=== PATIENT | male | born 1970 | race Caucasian/White ===

== ENCOUNTER 2017-11-04 08:24 | Inpatient (IN) | payer OTHER ==
[2017-11-04 09:41] VITALS: BMI 31.2
--- NOTE | 2017-11-04 12:33 | HP ---
COWS - Scale Resting Pulse: 0= [place] 80 or Below Sweatin=Flushed/Facial Moisture Restless Observation: 3= Extraneous Movement Pupil Size: 2= Moderately Dilated Bone or Joint Aches: 2= Severe Diffuse Aches Runny Nose/ Eye Tearin= Runny Nose/Eyes GI Upset > 30mins: 3= Vomiting/Diarrhea Tremor Observation: 2= Slight Tremor Visible Yawning Observation: 2= >3x During Session Anxiety or Irritability: 2=Irritable/Anxious Goose Flesh Skin: 0=Smooth Skin COWS Score: 20 CIWA Score - CIWA Score Nausea/Vomitin Muscle Tremors: 3 Anxiety: 3 Agitation: 3 Paroxysmal Sweats: 1-Minimal Palms Moist Orientation: 0-Oriented Tacttile Disturbances: 2-Mild Itch/Numbness/Burn Auditory Disturbances: 2-Mild Harshness/Frighten Visual Disturbances: 1-Very Mild Sensitivity Headache: 2-Mild CIWA-Ar Total Score: 20 Admission ROS BHS - HPI Chief Complaint: i need help to stop using heroin,alcohol and cocaine Allergies/Adverse Reactions: Allergies Allergy/AdvReac Type Severity Reaction Status Date / Time No Known Allergies Allergy Verified 11/04/17 10:38 History of Present Illness: this 47 years old male with heroin,alcohol,cocaine dependence,seeking detox, withdrawal symptom,last treatment [facility] 2003 sprain of right ankle 1 week ago seen at [facility] with cane nicotine dependence longest period of sobriety 6 years Exam Limitations: No Limitations - Ebola screening Have you traveled outside of the country in the last 21 days: No Have you had contact with anyone from an Ebola affected area: No Have you been sick,other than usual withdrawal symptoms: No - Review of Systems Constitutional: Chills, Loss of Appetite, Malaise, Night Sweats, Changes in sleep, Weakness, Unintentional Wgt. Loss EENT: reports: Tearing, Nose Congestion Respiratory: reports: No Symptoms reported Cardiac: reports: No Symptoms Reported GI: reports: Diarrhea, Nausea, Vomiting, Abdominal cramping : reports: No Symptoms Reported Musculoskeletal: reports: Back Pain, Joint Pain, Muscle Pain, Joint Stiffness, Other (sprain of right ankle 1 week ago ambulation with cane) Integumentary: reports: Dryness Endocrine: reports: No Symptoms Reported Hematology: reports: No Symptoms Reported Psychiatric: reports: No Sypmtoms Reported, Judgement Intact, Mood/Affect Appropiate Other Systems: Reviewed and Negative Patient History - Patient Medical History Hx Anemia: No Hx Asthma: No Hx Chronic Obstructive Pulmonary Disease (COPD): No Hx Cancer: No Hx Cardiac Disorders: No Hx Congestive Heart Failure: No Hx Hypertension: No Hx Hypercholesterolemia: No Hx Pacemaker: No HX Cerebrovascular Accident: No Hx Seizures: No Hx Dementia: No Hx Diabetes: No Hx Gastrointestinal Disorders: No Hx Liver Disease: No Hx Genitourinary Disorders: No Hx Sexually Transmitted Disorders: No Hx Renal Disease (ESRD): No Hx Thyroid Disease: No Hx Human Immunodeficiency Virus (HIV): No (last 09/07 negative) Hx Hepatitis C: No Hx Depression: No Hx Suicide Attempt: No Hx Bipolar Disorder: No Hx Schizophrenia: No Other Medical History: no suicidal,no homicidal - Patient Surgical History Past Surgical History: No Hx Neurologic Surgery: No Hx Cataract Extraction: No Hx Cardiac Surgery: No Hx Lung Surgery: No Hx Breast Surgery: No Hx Breast Biopsy: No Hx Abdominal Surgery: No Hx Appendectomy: No Hx Cholecystectomy: No Hx Genitourinary Surgery: No Hx Section: No Hx Orthopedic Surgery: No Anesthesia Reaction: No - PPD History Previous Implant?: Yes Documented Results: Positive w/o proof PPD to be Administered?: No - Smoking Cessation Smoking history: Current every day smoker Have you smoked in the past 12 months: Yes Aproximately how many cigarettes per day: 20 Hx Chewing Tobacco Use: No Initiated information on smoking cessation: Yes 'Breaking Loose' booklet given: 11/04/17 - Substance & Tx. History Hx Alcohol Use: Yes Hx Substance Use: Yes Substance Use Type: Alcohol, Cocaine, Heroin Hx Substance Use Treatment: Yes ([facility] in 2003) - Substances Abused Heroin Route: Inhalation Frequency: Daily Amount used: 5-10 bags Age of first use: 30 Date of Last Use: 11/03/17 Cocaine Route: Inhalation Frequency: 1-3 times last 30 days Amount used: $20-40 Age of first use: 16 Date of Last Use: 11/03/17 Alcohol-beer Route: Oral Frequency: Daily Amount used: 2-6 pks. Age of first use: 13 Date of Last Use: 11/03/17 Family Disease History - Family Disease History Family History: Denies Admission Physical Exam BHS - Vital Signs Vital Signs: Vital Signs - 24 hr 11/04/17 09:37 Temperature 98.5 F Pulse Rate 65 Respiratory 18 Rate Blood Pressure 146/94 - Physical General Appearance: Yes: Moderate Distress, Tremorous, Irritable, Sweating, Anxious HEENTM: Yes: Normal ENT Inspection, SIMON, Pharynx Normal Respiratory: Yes: Within Normal Limits, Lungs Clear, Normal Breath Sounds Neck: Yes: Within Normal Limits, Supple, Trachea in good position Breast: Yes: Within Normal Limits Cardiology: Yes: Within Normal Limits, Regular Rhythm, Regular Rate, S1, S2 Abdominal: Yes: Within Normal Limits, Normal Bowel Sounds, Non Tender, Soft Genitourinary: Yes: Within Normal Limits Back: Yes: Muscle Spasm Musculoskeletal: Yes: full range of Motion (swelling right ankle ambuation with cane), Back pain, Muscle Pain Extremities: Yes: Tremors (swelling of right ankle) 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: Yes: exotic dancer II-XII NML intact, Fully Oriented, Alert, Motor Strength 5/5 Integumentary: Yes: Dry Lymphatic: Yes: Within Normal Limits - Diagnostic (1) Opioid dependence with withdrawal Current Visit: Yes Status: Acute (2) Cocaine dependence Current Visit: Yes Status: Acute (3) Alcohol dependence with uncomplicated withdrawal Current Visit: Yes Status: Acute (4) Sprain and strain of ankle Current Visit: Yes Status: Acute (5) Use of cane as ambulatory aid Current Visit: Yes Status: Acute (6) Positive PPD Current Visit: Yes Status: Acute Cleared for Admission [facility] - Detox or Rehab [facility] Level of Care: Medically Managed Detox Regimen/Protocol: Methadone/Librium [facility] Breath Alcohol Content Breath Alcohol Content: 0 Urine Drug Screen - Results Drug Screen Negative: No Urine Drug Screen Results: AJ-Cocaine, OPI-Opiates
[2017-11-04] MEDS ORDERED: guaiFENesin/D-METHORPHAN HB 10 ML UNIT-DOSE CUPS PO PRN (12:44)
[2017-11-04] MEDS ORDERED: MAGNESIUM HYDROX 2400MG/30ML ORAL SUSPENSION 30 ML CUP PO PRN (12:44)
[2017-11-04] MEDS ORDERED: MENTHOL/PHENOL 1 EACH UD MM PRN (12:44)
[2017-11-04] MEDS ORDERED: LOPERAMIDE HCL 2 MG CAPSULE PO PRN (12:44)
[2017-11-04] MEDS ORDERED: P-EPHED 60MG/TRIPROLIDI 2.5MG TABLET PO PRN (12:44)
[2017-11-04] MEDS ORDERED: MAGNESIUM CITRATE 300 ML BOTTLE PO PRN (12:44)
[2017-11-04] MEDS ORDERED: MAG HYDROX/AL HYDROX/SIMETH 30 ML UNIT-DOSE CUP PO PRN (12:44)
[2017-11-04] MEDS ORDERED: IBUPROFEN 400 MG TABLET (FP) PO PRN (12:44)
[2017-11-04] MEDS ORDERED: chlordiazePOXIDE HCL 25 MG CAPSULE PO ONE (13:30)
[2017-11-04] MEDS ORDERED: METHADONE HCL 10 MG TABLET (FOR DETOX USE ONLY) PO ONE ×2 (13:30→23:00)
--- NOTE | 2017-11-04 17:09 | EKG ---
Test Reason : Blood Pressure : / mmHG Vent. Rate : 062 BPM Atrial Rate : 062 BPM P-R Int : 168 ms QRS Dur : 096 ms QT Int : 440 ms P-R-T Axes : 043 020 030 degrees QTc Int : 446 ms NORMAL SINUS RHYTHM NORMAL ECG NO PREVIOUS ECGS AVAILABLE Confirmed by MD AMANDA, RAY ([id number]) on 11/04/2017 5:08:53 PM Referred By: Confirmed By:RAY PATEL MD
[2017-11-04] MEDS: chlordiazePOXIDE HCL 25 MG CAPSULE PO SCH ×2 (17:47→22:07)
[2017-11-04] MEDS ORDERED: MELATONIN 5 MG TABLETS PO PRN (22:00)
[2017-11-04] MEDS: THIAMINE HCL 100 MG TABLET (FP) PO SCH (22:08)
[2017-11-04 23:26] LABS: URINE APPEARANCE TURBID; URINE BILIRUBIN NEGATIVE (<2.0 mg/dL); URINE COLOR YELLOW; URINE GLUCOSE (UA) NEGATIVE (NEGATIVE); URINE KETONE NEGATIVE (NEGATIVE); URINE LEUK ESTERASE NEGATIVE (NEGATIVE); URINE NITRITE NEGATIVE (NEGATIVE); URINE PROTEIN NEGATIVE (NEGATIVE); URINE UROBILINOGEN NEGATIVE mg/dL (0.2-1.0)
[2017-11-05] MEDS: chlordiazePOXIDE HCL 25 MG CAPSULE PO SCH ×4 (06:23→22:15)
[2017-11-05] MEDS ORDERED: METHADONE HCL 10 MG TABLET (FOR DETOX USE ONLY) PO SCH (10:00)
[2017-11-05 10:20] LABS: HEMATOCRIT 38.3 % (35.4-49); HEMOGLOBIN 13.2 GM/dL (11.7-16.9); MCH 32.1 pg (25.7-33.7); MCHC 34.3 g/dl (32.0-35.9); MEAN CELL VOLUME 93.5 fl (80-96); PLATELET COUNT 196 K/MM3 (134-434); RBC 4.09 M/mm3 (4.00-5.60); RDW 13.6 % (11.9-15.9); WHITE BLOOD COUNT 7.1 K/mm3 (4.0-10.0)
[2017-11-05 10:24] LABS: CHLORIDE 102 mmol/L (98-107); POTASSIUM 4.4 mmol/L (3.5-5.1); SODIUM 138 mmol/L (136-145)
[2017-11-05] MEDS: PRENATAL VITAMINS W/ FOLIC ACID TABLET (FP) PO SCH (10:31)
[2017-11-05 11:55] LABS: ALK PHOS 71 U/L (45-117); BLOOD UREA NITROGEN 15 mg/dL (7-18); CALCIUM 8.2 mg/dL (8.5-10.1); CREATININE 0.8 mg/dL (0.7-1.3); GLUCOSE,RANDOM 92 mg/dL (74-106); SGOT/AST 20 U/L (15-37); SGPT/ALT 21 U/L (12-78); TOT PROT 7.2 g/dl (6.4-8.2)
[2017-11-05 12:09] LABS: ANION GAP 8 (8-16); CO2 28 mmol/L (21-32)
--- NOTE | 2017-11-05 13:25 | PN ---
[facility] CIWA - CIWA Score Nausea/Vomitin-No Nausea/No Vomiting Muscle Tremors: 4-Moderate,w/Arms Extend Anxiety: 3 Agitation: 3 Paroxysmal Sweats: 3 Orientation: 0-Oriented Tacttile Disturbances: 3-Moderate Itch/Numb/Burn Auditory Disturbances: 2-Mild Harshness/Frighten Visual Disturbances: 0-None Headache: 0-None Present CIWA-Ar Total Score: 18 BHS COWS - Scale Resting Pulse: 0= [place] 80 or Below Sweatin= Chills/Flushing Restless Observation: 1= Difficult to Sit Still Pupil Size: 0= Normal to Room Light Bone or Joint Aches: 2= Severe Diffuse Aches Runny Nose/ Eye Tearin= Runny Nose/Eyes GI Upset > 30mins: 2= Nausea/Diarrhea Tremor Observation of Outstretched Hands: 2= Slight Tremor Visible Yawning Observation: 1= 1-2x During Session Anxiety or Irritability: 2=Irritable/Anxious Goose Flesh Skin: 0=Smooth Skin COWS Score: 13 S Progress Note (SOAP) Subjective: Tremors, Fatigue, Diarrhea, Body Aches, Sweating. Objective: PATIENT A & O X 3. NO ACUTE DISTRESS. 11/05/17 13:23 Vital Signs Temperature 96.5 F L 11/05/17 09:34 Pulse Rate 70 11/05/17 09:34 Respiratory Rate 18 11/05/17 09:34 Blood Pressure 151/94 11/05/17 09:34 O2 Sat by Pulse Oximetry (%) Laboratory Tests 11/04/17 11/05/17 11/05/17 23:04 06:00 06:00 WBC 7.1 RBC 4.09 Hgb 13.2 Hct 38.3 MCV 93.5 MCH 32.1 MCHC 34.3 RDW 13.6 Plt Count 196 MPV 9.0 Sodium 138 Potassium 4.4 Chloride 102 Carbon Dioxide 28 Anion Gap 8 BUN 15 Creatinine 0.8 Creat Clearance w eGFR > 60 Random Glucose 92 Calcium 8.2 L Total Bilirubin 1.0 AST 20 ALT 21 Alkaline Phosphatase 71 Total Protein 7.2 Albumin 4.0 Urine Color Yellow Urine Appearance Turbid Urine pH 5.0 Ur Specific [place] 1.027 Urine Protein Negative Urine Glucose (UA) Negative Urine Ketones Negative Urine Blood Negative Urine Nitrite Negative Urine Bilirubin Negative Urine Urobilinogen Negative Ur Leukocyte Esterase Negative RPR Titer 11/05/17 06:00 WBC RBC Hgb Hct MCV MCH MCHC RDW Plt Count MPV Sodium Potassium Chloride Carbon Dioxide Anion Gap BUN Creatinine Creat Clearance w eGFR Random Glucose Calcium Total Bilirubin AST ALT Alkaline Phosphatase Total Protein Albumin Urine Color Urine Appearance Urine pH Ur Specific [place] Urine Protein Urine Glucose (UA) Urine Ketones Urine Blood Urine Nitrite Urine Bilirubin Urine Urobilinogen Ur Leukocyte Esterase RPR Titer Nonreactive LABS NOTED. Assessment: 11/05/17 13:24 WITHDRAWAL SYMPTOMS. Plan: CONTINUE DETOX. CONTINUE TO MONITOR BP.
[2017-11-05] MEDS: chlordiazePOXIDE HCL 25 MG CAPSULE PO PRN (15:45)
[2017-11-05] MEDS: THIAMINE HCL 100 MG TABLET (FP) PO SCH (22:15)
[2017-11-06] MEDS: chlordiazePOXIDE HCL 25 MG CAPSULE PO SCH ×2 (07:11→10:01)
[2017-11-06] MEDS: METHADONE HCL 5 MG TABLET (FOR DETOX USE ONLY) PO SCH (09:58)
[2017-11-06] MEDS: PRENATAL VITAMINS W/ FOLIC ACID TABLET (FP) PO SCH (09:58)
--- NOTE | 2017-11-06 11:45 | PN ---
[facility] CIWA - CIWA Score Nausea/Vomitin-No Nausea/No Vomiting Muscle Tremors: 3 Anxiety: 3 Agitation: 1-Slight > Activity Paroxysmal Sweats: 3 Orientation: 0-Oriented Tacttile Disturbances: 2-Mild Itch/Numbness/Burn Auditory Disturbances: 0-None Visual Disturbances: 3-Moderate Sensitivity Headache: 0-None Present CIWA-Ar Total Score: 15 BHS COWS - Scale Resting Pulse: 0= [place] 80 or Below Sweatin= Chills/Flushing Restless Observation: 1= Difficult to Sit Still Pupil Size: 0= Normal to Room Light Bone or Joint Aches: 0= None Runny Nose/ Eye Tearin= Nasal Congestion GI Upset > 30mins: 0= None Tremor Observation of Outstretched Hands: 2= Slight Tremor Visible Yawning Observation: 2= >3x During Session Anxiety or Irritability: 2=Irritable/Anxious Goose Flesh Skin: 3=[place] COWS Score: 12 S Progress Note (SOAP) Subjective: Fatigue, Tremors, Sweating, Anxious. Objective: PATIENT A & O X 3. NO ACUTE DISTRESS. PATIENT DENIES CHEST PAIN. 11/06/17 11:43 Vital Signs Temperature 97.0 F L 11/06/17 09:33 Pulse Rate 66 11/06/17 09:33 Respiratory Rate 18 11/06/17 09:33 Blood Pressure 150/94 11/06/17 09:33 O2 Sat by Pulse Oximetry (%) Laboratory Tests 11/04/17 11/05/17 11/05/17 23:04 06:00 06:00 WBC 7.1 RBC 4.09 Hgb 13.2 Hct 38.3 MCV 93.5 MCH 32.1 MCHC 34.3 RDW 13.6 Plt Count 196 MPV 9.0 Sodium 138 Potassium 4.4 Chloride 102 Carbon Dioxide 28 Anion Gap 8 BUN 15 Creatinine 0.8 Creat Clearance w eGFR > 60 Random Glucose 92 Calcium 8.2 L Total Bilirubin 1.0 AST 20 ALT 21 Alkaline Phosphatase 71 Total Protein 7.2 Albumin 4.0 Urine Color Yellow Urine Appearance Turbid Urine pH 5.0 Ur Specific [place] 1.027 Urine Protein Negative Urine Glucose (UA) Negative Urine Ketones Negative Urine Blood Negative Urine Nitrite Negative Urine Bilirubin Negative Urine Urobilinogen Negative Ur Leukocyte Esterase Negative RPR Titer 11/05/17 06:00 WBC RBC Hgb Hct MCV MCH MCHC RDW Plt Count MPV Sodium Potassium Chloride Carbon Dioxide Anion Gap BUN Creatinine Creat Clearance w eGFR Random Glucose Calcium Total Bilirubin AST ALT Alkaline Phosphatase Total Protein Albumin Urine Color Urine Appearance Urine pH Ur Specific [place] Urine Protein Urine Glucose (UA) Urine Ketones Urine Blood Urine Nitrite Urine Bilirubin Urine Urobilinogen Ur Leukocyte Esterase RPR Titer Nonreactive LABS NOTED. 11/06/17 11:44 Assessment: 11/06/17 11:44 WITHDRAWAL SYMPTOMS. Plan: CONTINUE DETOX. CONTINUE TO MONITOR BP.
[2017-11-06] MEDS ORDERED: NICOTINE POLACRILEX 4 MG GUM BUC PRN (12:48)
[2017-11-06] MEDS: chlordiazePOXIDE HCL 25 MG CAPSULE PO PRN (13:21)
[2017-11-06] MEDS: chlordiazePOXIDE 5 MG CAPSULE PO SCH ×2 (17:04→22:16)
[2017-11-06] MEDS: THIAMINE HCL 100 MG TABLET (FP) PO SCH (22:16)
[2017-11-07] MEDS: chlordiazePOXIDE 5 MG CAPSULE PO SCH ×2 (05:48→10:45)
[2017-11-07] MEDS: PRENATAL VITAMINS W/ FOLIC ACID TABLET (FP) PO SCH (10:45)
[2017-11-07] MEDS: METHADONE HCL 5 MG TABLET (FOR DETOX USE ONLY) PO SCH (10:45)
[2017-11-07] MEDS: ACETAMINOPHEN 325 MG TABLET (FP) PO PRN ×2 (10:46→17:59)
--- NOTE | 2017-11-07 11:37 | PN ---
BHS Progress Note (SOAP) Subjective: Body Aches, Tremors, Fatigue. Objective: PATIENT A & O X 3. NO ACUTE DISTRESS. 11/07/17 11:35 Vital Signs Temperature 96.6 F L 11/07/17 09:34 Pulse Rate 64 11/07/17 09:34 Respiratory Rate 18 11/07/17 09:34 Blood Pressure 129/81 11/07/17 09:34 O2 Sat by Pulse Oximetry (%) Laboratory Tests 11/04/17 11/05/17 11/05/17 23:04 06:00 06:00 WBC 7.1 RBC 4.09 Hgb 13.2 Hct 38.3 MCV 93.5 MCH 32.1 MCHC 34.3 RDW 13.6 Plt Count 196 MPV 9.0 Sodium 138 Potassium 4.4 Chloride 102 Carbon Dioxide 28 Anion Gap 8 BUN 15 Creatinine 0.8 Creat Clearance w eGFR > 60 Random Glucose 92 Calcium 8.2 L Total Bilirubin 1.0 AST 20 ALT 21 Alkaline Phosphatase 71 Total Protein 7.2 Albumin 4.0 Urine Color Yellow Urine Appearance Turbid Urine pH 5.0 Ur Specific [place] 1.027 Urine Protein Negative Urine Glucose (UA) Negative Urine Ketones Negative Urine Blood Negative Urine Nitrite Negative Urine Bilirubin Negative Urine Urobilinogen Negative Ur Leukocyte Esterase Negative RPR Titer 11/05/17 06:00 WBC RBC Hgb Hct MCV MCH MCHC RDW Plt Count MPV Sodium Potassium Chloride Carbon Dioxide Anion Gap BUN Creatinine Creat Clearance w eGFR Random Glucose Calcium Total Bilirubin AST ALT Alkaline Phosphatase Total Protein Albumin Urine Color Urine Appearance Urine pH Ur Specific [place] Urine Protein Urine Glucose (UA) Urine Ketones Urine Blood Urine Nitrite Urine Bilirubin Urine Urobilinogen Ur Leukocyte Esterase RPR Titer Nonreactive LABS NOTED. Assessment: 11/07/17 11:35 WITHDRAWAL SYMPTOMS. Plan: CONTINUE DETOX. ENCOURAGE AMBULATION. INCREASE DAILY PO FLUID INTAKE.
[2017-11-07] MEDS: chlordiazePOXIDE HCL 10 MG CAPSULE PO SCH ×2 (17:58→22:15)
[2017-11-07] MEDS: hydrOXYzine PAMOATE 50 MG CAPSULE (FP) PO PRN (19:47)
[2017-11-07] MEDS: THIAMINE HCL 100 MG TABLET (FP) PO SCH (22:15)
[2017-11-08] MEDS: chlordiazePOXIDE HCL 10 MG CAPSULE PO SCH ×2 (06:35→10:45)
[2017-11-08] MEDS ORDERED: METHADONE HCL 10 MG TABLET (FOR DETOX USE ONLY) PO SCH (10:00)
[2017-11-08] MEDS: PRENATAL VITAMINS W/ FOLIC ACID TABLET (FP) PO SCH (10:45)
[2017-11-08] MEDS: ACETAMINOPHEN 325 MG TABLET (FP) PO PRN (10:47)
--- NOTE | 2017-11-08 18:37 | PN ---
BHS Progress Note (SOAP) Subjective: Sweating, Anxious. Objective: PATIENT A & O X 3, OBSERVED AMBULATING ON UNIT. NO ACUTE DISTRESS. 11/08/17 18:35 Vital Signs Temperature 97.2 F L 11/08/17 18:09 Pulse Rate 68 11/08/17 18:09 Respiratory Rate 18 11/08/17 18:09 Blood Pressure 132/89 11/08/17 18:09 O2 Sat by Pulse Oximetry (%) Laboratory Tests 11/04/17 11/05/17 11/05/17 23:04 06:00 06:00 WBC 7.1 RBC 4.09 Hgb 13.2 Hct 38.3 MCV 93.5 MCH 32.1 MCHC 34.3 RDW 13.6 Plt Count 196 MPV 9.0 Sodium 138 Potassium 4.4 Chloride 102 Carbon Dioxide 28 Anion Gap 8 BUN 15 Creatinine 0.8 Creat Clearance w eGFR > 60 Random Glucose 92 Calcium 8.2 L Total Bilirubin 1.0 AST 20 ALT 21 Alkaline Phosphatase 71 Total Protein 7.2 Albumin 4.0 Urine Color Yellow Urine Appearance Turbid Urine pH 5.0 Ur Specific [place] 1.027 Urine Protein Negative Urine Glucose (UA) Negative Urine Ketones Negative Urine Blood Negative Urine Nitrite Negative Urine Bilirubin Negative Urine Urobilinogen Negative Ur Leukocyte Esterase Negative RPR Titer 11/05/17 06:00 WBC RBC Hgb Hct MCV MCH MCHC RDW Plt Count MPV Sodium Potassium Chloride Carbon Dioxide Anion Gap BUN Creatinine Creat Clearance w eGFR Random Glucose Calcium Total Bilirubin AST ALT Alkaline Phosphatase Total Protein Albumin Urine Color Urine Appearance Urine pH Ur Specific [place] Urine Protein Urine Glucose (UA) Urine Ketones Urine Blood Urine Nitrite Urine Bilirubin Urine Urobilinogen Ur Leukocyte Esterase RPR Titer Nonreactive LABS NOTED. Assessment: 11/08/17 18:36 WITHDRAWAL SYMPTOMS. Plan: CONTINUE DETOX. INCREASE DAILY PO FLUID INTAKE. ENCOURAGE AMBULATION. PATIENT SCHEDULED FOR D/C TOMORROW.
[2017-11-08] MEDS: hydrOXYzine PAMOATE 50 MG CAPSULE (FP) PO PRN (22:13)
[2017-11-08] MEDS: THIAMINE HCL 100 MG TABLET (FP) PO SCH (22:13)
[2017-11-09] MEDS ORDERED: METHADONE HCL 5 MG TABLET (FOR DETOX USE ONLY) PO SCH (06:00)
[2017-11-09 06:40] VITALS: BP 119/82; PULSE 61; TEMP 96.1
--- NOTE | 2017-11-09 11:26 | DS ---
[facility] Detox Discharge Summary Admission Date: 11/04/17 Discharge Date: 11/09/17 - History Present History: Alcohol Dependence, Cocaine Dependence, Opioid Dependence Pertinent Past History: PPD Positive - Physical Exam Results Vital Signs: Vital Signs Temperature 96.1 F L 11/09/17 06:39 Pulse Rate 61 11/09/17 06:39 Respiratory Rate 18 11/09/17 06:39 Blood Pressure 119/82 11/09/17 06:39 O2 Sat by Pulse Oximetry (%) Pertinent Admission Physical Exam Findings: Withdrawal symptoms Laboratory Tests 11/04/17 11/05/17 11/05/17 23:04 06:00 06:00 WBC 7.1 RBC 4.09 Hgb 13.2 Hct 38.3 MCV 93.5 MCH 32.1 MCHC 34.3 RDW 13.6 Plt Count 196 MPV 9.0 Sodium 138 Potassium 4.4 Chloride 102 Carbon Dioxide 28 Anion Gap 8 BUN 15 Creatinine 0.8 Creat Clearance w eGFR > 60 Random Glucose 92 Calcium 8.2 L Total Bilirubin 1.0 AST 20 ALT 21 Alkaline Phosphatase 71 Total Protein 7.2 Albumin 4.0 Urine Color Yellow Urine Appearance Turbid Urine pH 5.0 Ur Specific [place] 1.027 Urine Protein Negative Urine Glucose (UA) Negative Urine Ketones Negative Urine Blood Negative Urine Nitrite Negative Urine Bilirubin Negative Urine Urobilinogen Negative Ur Leukocyte Esterase Negative RPR Titer 11/05/17 06:00 WBC RBC Hgb Hct MCV MCH MCHC RDW Plt Count MPV Sodium Potassium Chloride Carbon Dioxide Anion Gap BUN Creatinine Creat Clearance w eGFR Random Glucose Calcium Total Bilirubin AST ALT Alkaline Phosphatase Total Protein Albumin Urine Color Urine Appearance Urine pH Ur Specific [place] Urine Protein Urine Glucose (UA) Urine Ketones Urine Blood Urine Nitrite Urine Bilirubin Urine Urobilinogen Ur Leukocyte Esterase RPR Titer Nonreactive Labs reviewed - Treatment Hospital Course: Detox Protocol Followed, Detoxed Safely, Responded well, Discharged Condition Good - Medication Discharge Medications: Ambulatory Orders NK [No Known Home Medication] 11/04/17 - Diagnosis (1) Nicotine dependence Status: Chronic (2) Alcohol dependence with uncomplicated withdrawal Status: Acute (3) Cocaine dependence Status: Chronic Qualifiers: Substance use status: uncomplicated Qualified Code(s): F14.20 - Cocaine dependence, uncomplicated (4) Opioid dependence with withdrawal Status: Acute (5) Positive PPD Status: Chronic - AMA Did Patient Leave Against Medical Advice: No (F/U with your PCP within 1-2 weeks )
== END 2017-11-09 09:13 | disposition other institution (70) | DRG 773 ==
LOC: YASAS 08:24 → Y3N 13:06
PROVIDERS: ADMIT Internal Medicine; ATTEND Internal Medicine
PROC: HZ2ZZZZ Detoxification Services for Substance Abuse Treatment (ICD-10-PCS; principal; 2017-11-04)
DX: F11.23 Opioid dependence with withdrawal (principal); F10.230 Alcohol dependence with withdrawal, uncomplicated; F14.20 Cocaine dependence, uncomplicated; F17.210 Nicotine dependence, cigarettes, uncomplicated; R76.11 Nonspecific reaction to tuberculin skin test without active tuberculosis; S93.401D Sprain of unspecified ligament of right ankle, subsequent encounter; R26.89 Other abnormalities of gait and mobility; Z99.89 Dependence on other enabling machines and devices
CPT/HCPCS: 36415; 71045-TC-FY; 80053; 81003; 85027; 86593; 93005; 93010

== ENCOUNTER 2017-11-28 17:23 | Inpatient (IN) | payer OTHER ==
[2017-11-28 19:43] VITALS: BMI 31.2
--- NOTE | 2017-11-28 20:33 | HP ---
COWS - Scale Resting Pulse: 1= [place] 81-100 Sweatin=Flushed/Facial Moisture Restless Observation: 1= Difficult to Sit Still Pupil Size: 0= Normal to Room Light Bone or Joint Aches: 4=Acute Joint/Muscle Pain Runny Nose/ Eye Tearin= Nasal Congestion GI Upset > 30mins: 2= Nausea/Diarrhea (nausea, no diarrhea) Tremor Observation: 2= Slight Tremor Visible Yawning Observation: 0= None Anxiety or Irritability: 4=Extreme Anxiety Goose Flesh Skin: 0=Smooth Skin COWS Score: 17 CIWA Score - CIWA Score Nausea/Vomitin-Mild Nausea/No Vomiting Muscle Tremors: 2 Anxiety: 4-Mod. Anxious/Guarded Agitation: 4-Moderately Restless Paroxysmal Sweats: 2 Orientation: 0-Oriented Tacttile Disturbances: 0-None Auditory Disturbances: 0-None Visual Disturbances: 0-None Headache: 3-Moderate CIWA-Ar Total Score: 16 Admission ROS S - HPI Chief Complaint: Heroin and alcohol withdrawal symptoms Allergies/Adverse Reactions: Allergies Allergy/AdvReac Type Severity Reaction Status Date / Time No Known Allergies Allergy Verified 11/28/17 19:43 History of Present Illness: 47 years old male with a long history of heroin and alcohol dependence is seeking admission to detox. Patient was in detox 11/04/2017-11/09/2017 and reports 5 years of sobriety. Patient reports that he is very and anxious and depressed and will appreciate a psych. consult. He has medical history of PPD positive. Patient denies suicide attempt and suicidal ideation at this time. Exam Limitations: No Limitations - Ebola screening Have you traveled outside of the country in the last 21 days: No Have you had contact with anyone from an Ebola affected area: No Have you been sick,other than usual withdrawal symptoms: No Do you have a fever: No - Review of Systems Constitutional: Chills, Loss of Appetite, Malaise, Night Sweats, Changes in sleep EENT: reports: No Symptoms Reported Respiratory: reports: No Symptoms reported Cardiac: reports: No Symptoms Reported GI: reports: Nausea, Poor Appetite, Poor Fluid Intake, Abdominal cramping : reports: No Symptoms Reported Musculoskeletal: reports: Back Pain (lower back), Other (knees and both hands) Integumentary: reports: Flushing Neuro: reports: Headache, Tingling, Tremors Endocrine: reports: No Symptoms Reported Hematology: reports: No Symptoms Reported Psychiatric: reports: Orientated x3, Anxious, Depressed Other Systems: Reviewed and Negative Patient History - Patient Medical History Hx Anemia: No Hx Asthma: No Hx Chronic Obstructive Pulmonary Disease (COPD): No Hx Cancer: No Hx Cardiac Disorders: No Hx Congestive Heart Failure: No Hx Hypertension: No Hx Hypercholesterolemia: No Hx Pacemaker: No HX Cerebrovascular Accident: No Hx Seizures: No Hx Dementia: No Hx Diabetes: No Hx Gastrointestinal Disorders: No Hx Liver Disease: No Hx Genitourinary Disorders: No Hx Sexually Transmitted Disorders: No Hx Renal Disease (ESRD): No Hx Thyroid Disease: No Hx Human Immunodeficiency Virus (HIV): No (Negative August 2017) Hx Hepatitis C: No Hx Depression: Yes (Not on medication) Hx Suicide Attempt: No (Denies suicide attempt and suicidal ideation at this time) Hx Bipolar Disorder: No Hx Schizophrenia: No Other Medical History: Anxiety - Not on medication - Patient Surgical History Past Surgical History: No Hx Neurologic Surgery: No Hx Cataract Extraction: No Hx Cardiac Surgery: No Hx Lung Surgery: No Hx Abdominal Surgery: No Hx Appendectomy: No Hx Cholecystectomy: No Hx Genitourinary Surgery: No Hx Orthopedic Surgery: No Anesthesia Reaction: No - PPD History Previous Implant?: Yes (PPD POSITIVE. INH and B12 for 13 months in 1995) Documented Results: Positive w/proof - Reproductive History Patient is a Female of Child Bearing Age (11 -55 yrs old): No (MALE) - Smoking Cessation Smoking history: Current every day smoker Have you smoked in the past 12 months: Yes Aproximately how many cigarettes per day: 20 Hx Chewing Tobacco Use: No Initiated information on smoking cessation: Yes 'Breaking Loose' booklet given: 11/28/17 - Substance & Tx. History Hx Alcohol Use: Yes Hx Substance Use: Yes Substance Use Type: Alcohol, Heroin Hx Substance Use Treatment: Yes ([facility] 11/04-11/09/2017) - Substances Abused Alcohol Route: Oral Frequency: Daily Amount used: BEER- 1 SIX PACK Age of first use: 13 Date of Last Use: 11/28/17 Heroin Route: Inhalation Frequency: Daily Amount used: 8 BAGS Age of first use: 30 Date of Last Use: 11/28/17 Family Disease History - Family Disease History Family Disease History: Other: Father (Killed when patient was 4 years old) Admission Physical Exam [facility] - Vital Signs Vital Signs: Vital Signs - 24 hr 11/28/17 19:28 Temperature 97.7 F Pulse Rate 90 Respiratory 16 Rate Blood Pressure 156/95 - Physical General Appearance: Yes: Moderate Distress, Tremorous, Irritable, Sweating, Anxious HEENTM: Yes: EOMI, Normal ENT Inspection, Normal Voice, SIMON Respiratory: Yes: Lungs Clear, Normal Breath Sounds, No Respiratory Distress Neck: Yes: Supple Breast: Yes: Breast Exam Deferred Cardiology: Yes: Tachycardia Abdominal: Yes: Normal Bowel Sounds, Soft Genitourinary: Yes: Within Normal Limits Back: Yes: Normal Inspection Musculoskeletal: Yes: Back pain, Muscle Pain, Muscle weakness Extremities: Yes: Tremors 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: Yes: Alert, Normal Mood/Affect Integumentary: Yes: Dry Lymphatic: Yes: Within Normal Limits - Diagnostic (1) Alcohol dependence with uncomplicated withdrawal Current Visit: Yes Status: Chronic (2) Opioid dependence with withdrawal Current Visit: Yes Status: Chronic (3) Nicotine dependence Current Visit: Yes Status: Chronic (4) Positive PPD Current Visit: Yes Status: Chronic [facility] Breath Alcohol Content Breath Alcohol Content: 0 Urine Drug Screen - Results Drug Screen Negative: No Urine Drug Screen Results: OPI-Opiates, BZO-Benzodiazepines
[2017-11-28] MEDS ORDERED: IBUPROFEN 400 MG TABLET (FP) PO PRN (20:48)
[2017-11-28] MEDS ORDERED: MAGNESIUM CITRATE 300 ML BOTTLE PO PRN (20:48)
[2017-11-28] MEDS ORDERED: MENTHOL/PHENOL 1 EACH UD MM PRN (20:48)
[2017-11-28] MEDS ORDERED: METHADONE HCL 10 MG TABLET (FOR DETOX USE ONLY) PO ONE ×2 (20:48→23:00)
[2017-11-28] MEDS ORDERED: LOPERAMIDE HCL 2 MG CAPSULE PO PRN (20:48)
[2017-11-28] MEDS ORDERED: MAG HYDROX/AL HYDROX/SIMETH 30 ML UNIT-DOSE CUP PO PRN (20:48)
[2017-11-28] MEDS ORDERED: guaiFENesin/D-METHORPHAN HB 10 ML UNIT-DOSE CUPS PO PRN (20:48)
[2017-11-28] MEDS ORDERED: chlordiazePOXIDE HCL 25 MG CAPSULE PO PRN (20:48)
[2017-11-28] MEDS ORDERED: MAGNESIUM HYDROX 2400MG/30ML ORAL SUSPENSION 30 ML CUP PO PRN (20:48)
[2017-11-28] MEDS ORDERED: P-EPHED 60MG/TRIPROLIDI 2.5MG TABLET PO PRN (20:48)
[2017-11-28] MEDS ORDERED: MELATONIN 5 MG TABLETS PO PRN (22:00)
[2017-11-28] MEDS: THIAMINE HCL 100 MG TABLET (FP) PO SCH (22:46)
[2017-11-28] MEDS: chlordiazePOXIDE HCL 25 MG CAPSULE PO SCH (22:47)
[2017-11-29] MEDS: ACETAMINOPHEN 325 MG TABLET (FP) PO PRN (01:49)
[2017-11-29] MEDS: chlordiazePOXIDE HCL 25 MG CAPSULE PO SCH ×4 (05:46→22:22)
[2017-11-29] MEDS ORDERED: METHADONE HCL 10 MG TABLET (FOR DETOX USE ONLY) PO SCH (10:00)
[2017-11-29] MEDS: NICOTINE 14 MG/24 HOURS TOPICAL PATCH TD SCH (10:12)
[2017-11-29] MEDS: PRENATAL VITAMINS W/ FOLIC ACID TABLET (FP) PO SCH (10:12)
[2017-11-29] MEDS: NICOTINE POLACRILEX 2 MG GUM BC PRN (10:13)
[2017-11-29 10:47] LABS: HEMATOCRIT 38.6 % (35.4-49); HEMOGLOBIN 13.1 GM/dL (11.7-16.9); MCH 31.5 pg (25.7-33.7); MCHC 33.9 g/dl (32.0-35.9); MEAN CELL VOLUME 92.8 fl (80-96); MEAN PLT VOLUME 8.2 fl (7.5-11.1); PLATELET COUNT 198 K/MM3 (134-434); RBC 4.16 M/mm3 (4.00-5.60); WHITE BLOOD COUNT 5.3 K/mm3 (4.0-10.0)
[2017-11-29 11:06] LABS: CHLORIDE 103 mmol/L (98-107); POTASSIUM 4.5 mmol/L (3.5-5.1); SODIUM 138 mmol/L (136-145)
[2017-11-29 11:30] LABS: ALBUMIN 3.2 g/dl (3.4-5.0); ALK PHOS 60 U/L (45-117); ANION GAP 5 (8-16); BILIRUBIN,TOTAL 0.2 mg/dL (0.2-1.0); BLOOD UREA NITROGEN 14 mg/dL (7-18); CALCIUM 8.2 mg/dL (8.5-10.1); CO2 30 mmol/L (21-32); CREATININE 0.8 mg/dL (0.7-1.3); GLUCOSE,RANDOM 99 mg/dL (74-106); SGOT/AST 36 U/L (15-37); SGPT/ALT 40 U/L (12-78); TOT PROT 6.2 g/dl (6.4-8.2)
--- NOTE | 2017-11-29 14:16 | CONSULT ---
[facility] Psychiatric Consult - Data Date of interview: 11/29/17 Admission source: [facility] Identifying data: Readmission to [facility] for this 47 y/o male seeking detox treatment on for alcohol,heroin and nicotine dependence.Patient is single,a father of two,domiciled,unemployed and supported on food stamps. Substance Abuse History: Confirmed by patient in this session.Smoking history: Current every day smoker. Have you smoked in the past 12 months: Yes. Aproximately how many cigarettes per day: 20. Hx Chewing Tobacco Use: No. Initiated information on smoking cessation: Yes. 'Breaking Loose' booklet given : 11/28/17. - Substance & Tx. History. Hx Alcohol Use: Yes. Hx Substance Use : Yes. Substance Use Type: Alcohol, Heroin. Hx Substance Use Treatment: Yes ( [facility] 11/04-11/09/2017). - Substances Abused. Alcohol. Route: Oral. Frequency: Daily. Amount used: BEER- 1 SIX PACK. Age of first use: 13. Date of Last Use: 11/28/17. Heroin. Route: Inhalation. Frequency: Daily. Amount used: 8 BAGS. Age of first use: 30. Date of Last Use: 11/28/17 Medical History: Hypertension,arthritis and a history of positive PPD (treated with INH + B6) in 1995. Psychiatric History: Diagnosed in the past with MDD and Anxiety Disorder (three years ago).Used to attend OPD care at the [facility] mental health clinic.Has no recollection of psychotropic prescribed at the time.Totally lost to follow up.Mr Dean denies history of suicide attempts. Physical/Sexual Abuse/Trauma History: No history. Additional Comment: Urine Drug Screen Results: OPI-Opiates, BZO- Benzodiazepines.Noted. Mental Status Exam - Mental Status Exam Alert and Oriented to: Time, Place, Person Cognitive Function: Good Patient Appearance: Well Groomed Mood: Euthymic Affect: Appropriate, Normal Range Patient Behavior: Fatigued, Cooperative Speech Pattern: Clear Voice Loudness: Normal Thought Process: Intact, Goal Oriented Thought Disorder: Not Present Hallucinations: Denies Suicidal Ideation: Denies Homicidal Ideation: Denies Insight/Judgement: Poor Sleep: Poorly, Difficulty falling asleep Appetite: Good Muscle strength/Tone: Rigidity Gait/Station: Normal Psychiatric Findings - Problem List ([place] 1, 2,3) (1) Alcohol dependence with uncomplicated withdrawal Current Visit: Yes Status: Acute (2) Opioid dependence with withdrawal Current Visit: Yes Status: Acute (3) Nicotine dependence Current Visit: Yes Status: Acute (4) Insomnia Current Visit: Yes Status: Acute - Initial Treatment Plan Initial Treatment Plan: Psychoeducation.Sleep hygiene.Detoxification in progress.Ambien 10 mg po hs prn.Risk of parasomnias discussed.Patient agrees to this careplan.Observation.
--- NOTE | 2017-11-29 14:49 | EKG ---
Test Reason : Blood Pressure : / mmHG Vent. Rate : 079 BPM Atrial Rate : 079 BPM P-R Int : 164 ms QRS Dur : 090 ms QT Int : 402 ms P-R-T Axes : 071 027 046 degrees QTc Int : 460 ms NORMAL SINUS RHYTHM POSSIBLE LEFT ATRIAL ENLARGEMENT BORDERLINE ECG WHEN COMPARED WITH ECG OF 04-NOV-2017 15:32, NO SIGNIFICANT CHANGE WAS FOUND Confirmed by MD Rice Daniel ([id number]) on 11/29/2017 2:48:45 PM Referred By: Confirmed By:Jack Rice MD
--- NOTE | 2017-11-29 17:11 | PN ---
[facility] CIWA - CIWA Score Nausea/Vomitin-No Nausea/No Vomiting Muscle Tremors: 3 Anxiety: 2 Agitation: 2 Paroxysmal Sweats: 3 Orientation: 0-Oriented Tacttile Disturbances: 3-Moderate Itch/Numb/Burn Auditory Disturbances: 0-None Visual Disturbances: 3-Moderate Sensitivity Headache: 0-None Present CIWA-Ar Total Score: 16 BHS COWS - Scale Resting Pulse: 0= [place] 80 or Below Sweatin= Chills/Flushing Restless Observation: 1= Difficult to Sit Still Pupil Size: 0= Normal to Room Light Bone or Joint Aches: 2= Severe Diffuse Aches Runny Nose/ Eye Tearin= None GI Upset > 30mins: 2= Nausea/Diarrhea Tremor Observation of Outstretched Hands: 2= Slight Tremor Visible Yawning Observation: 1= 1-2x During Session Anxiety or Irritability: 2=Irritable/Anxious Goose Flesh Skin: 3=Piloerection COWS Score: 14 S Progress Note (SOAP) Subjective: Diarrhea, Tremors, Body Aches, Sweating, Interrupted Sleep. Objective: PATIENT A & O X 3, OBSERVED AMBULATING ON UNIT. NO ACUTE DISTRESS. 11/29/17 17:10 Vital Signs Temperature 97.0 F L 11/29/17 14:12 Pulse Rate 66 11/29/17 14:12 Respiratory Rate 18 11/29/17 14:12 Blood Pressure 125/83 11/29/17 14:12 O2 Sat by Pulse Oximetry (%) Laboratory Tests 11/29/17 11/29/17 11/29/17 07:55 07:55 07:55 WBC 5.3 RBC 4.16 Hgb 13.1 Hct 38.6 MCV 92.8 MCH 31.5 MCHC 33.9 RDW 14.0 Plt Count 198 MPV 8.2 Sodium 138 Potassium 4.5 Chloride 103 Carbon Dioxide 30 Anion Gap 5 L BUN 14 Creatinine 0.8 Creat Clearance w eGFR > 60 Random Glucose 99 Calcium 8.2 L Total Bilirubin 0.2 D AST 36 D ALT 40 D Alkaline Phosphatase 60 Total Protein 6.2 L Albumin 3.2 L RPR Titer HIV 1&2 Antibody Screen Negative HIV P24 Antigen Negative 11/29/17 07:55 WBC RBC Hgb Hct MCV MCH MCHC RDW Plt Count MPV Sodium Potassium Chloride Carbon Dioxide Anion Gap BUN Creatinine Creat Clearance w eGFR Random Glucose Calcium Total Bilirubin AST ALT Alkaline Phosphatase Total Protein Albumin RPR Titer Nonreactive HIV 1&2 Antibody Screen HIV P24 Antigen LABS NOTED. UA RESULTS PENDING. 11/29/17 17:11 Assessment: 11/29/17 17:10 WITHDRAWAL SYMPTOMS. Plan: CONTINUE DETOX. INCREASE DAILY PO FLUID INTAKE.
[2017-11-29] MEDS: THIAMINE HCL 100 MG TABLET (FP) PO SCH (22:22)
[2017-11-29] MEDS: ZOLPIDEM TARTRATE 5 MG TABLET PO PRN (22:24)
[2017-11-30] MEDS: chlordiazePOXIDE HCL 25 MG CAPSULE PO SCH ×3 (05:30→17:38)
[2017-11-30] MEDS: PRENATAL VITAMINS W/ FOLIC ACID TABLET (FP) PO SCH (10:13)
[2017-11-30] MEDS: METHADONE HCL 5 MG TABLET (FOR DETOX USE ONLY) PO SCH (10:14)
[2017-11-30] MEDS: NICOTINE 14 MG/24 HOURS TOPICAL PATCH TD SCH (10:14)
[2017-11-30] MEDS: NICOTINE POLACRILEX 2 MG GUM BC PRN (10:14)
--- NOTE | 2017-11-30 13:57 | PN ---
S CIWA - CIWA Score Nausea/Vomitin-No Nausea/No Vomiting Muscle Tremors: 4-Moderate,w/Arms Extend Anxiety: 4-Mod. Anxious/Guarded Agitation: 4-Moderately Restless Paroxysmal Sweats: 1-Minimal Palms Moist Orientation: 0-Oriented Tacttile Disturbances: 0-None Auditory Disturbances: 0-None Visual Disturbances: 0-None Headache: 0-None Present CIWA-Ar Total Score: 13 S COWS - Scale Resting Pulse: 0= [place] 80 or Below Sweatin= Chills/Flushing Restless Observation: 3= Extraneous Movement Pupil Size: 2= Moderately Dilated Bone or Joint Aches: 1= Mild Discomfort Runny Nose/ Eye Tearin= None GI Upset > 30mins: 0= None Tremor Observation of Outstretched Hands: 1= Tremor [place], Not Seen Yawning Observation: 1= 1-2x During Session Anxiety or Irritability: 2=Irritable/Anxious Goose Flesh Skin: 0=Smooth Skin COWS Score: 11 S Progress Note (SOAP) Subjective: SLIGHT ANXIETY,TREMORS, FATIGUE. Objective: 11/30/17 13:56 Vital Signs 11/30/17 11/30/17 11/30/17 06:19 09:56 13:40 Temperature 96.8 F L 97.3 F L 97.4 F L Pulse Rate 56 L 68 66 Respiratory 16 18 18 Rate Blood Pressure 127/76 119/75 116/73 Laboratory Tests 11/29/17 11/29/17 11/29/17 07:55 07:55 07:55 WBC 5.3 RBC 4.16 Hgb 13.1 Hct 38.6 MCV 92.8 MCH 31.5 MCHC 33.9 RDW 14.0 Plt Count 198 MPV 8.2 Sodium 138 Potassium 4.5 Chloride 103 Carbon Dioxide 30 Anion Gap 5 L BUN 14 Creatinine 0.8 Creat Clearance w eGFR > 60 Random Glucose 99 Calcium 8.2 L Total Bilirubin 0.2 D AST 36 D ALT 40 D Alkaline Phosphatase 60 Total Protein 6.2 L Albumin 3.2 L RPR Titer HIV 1&2 Antibody Screen Negative HIV P24 Antigen Negative 11/29/17 07:55 WBC RBC Hgb Hct MCV MCH MCHC RDW Plt Count MPV Sodium Potassium Chloride Carbon Dioxide Anion Gap BUN Creatinine Creat Clearance w eGFR Random Glucose Calcium Total Bilirubin AST ALT Alkaline Phosphatase Total Protein Albumin RPR Titer Nonreactive HIV 1&2 Antibody Screen HIV P24 Antigen UA PENDING Assessment: 11/30/17 13:57 WITHDRAWAL SX Plan: CONTINUE DETOX INCREASE PO FLUIDS
[2017-11-30 19:11] LABS: URINE APPEARANCE CLOUDY; URINE BILIRUBIN NEGATIVE (<2.0 mg/dL); URINE COLOR YELLOW; URINE GLUCOSE (UA) NEGATIVE (NEGATIVE); URINE KETONE NEGATIVE (NEGATIVE); URINE LEUK ESTERASE NEGATIVE (NEGATIVE); URINE NITRITE NEGATIVE (NEGATIVE); URINE PROTEIN NEGATIVE (NEGATIVE); URINE UROBILINOGEN NEGATIVE mg/dL (0.2-1.0)
[2017-11-30] MEDS: THIAMINE HCL 100 MG TABLET (FP) PO SCH (22:07)
[2017-11-30] MEDS: chlordiazePOXIDE 5 MG CAPSULE PO SCH (22:07)
[2017-11-30] MEDS: ZOLPIDEM TARTRATE 5 MG TABLET PO PRN (22:10)
[2017-12-01] MEDS: chlordiazePOXIDE 5 MG CAPSULE PO SCH ×3 (05:30→17:15)
[2017-12-01] MEDS: METHADONE HCL 5 MG TABLET (FOR DETOX USE ONLY) PO SCH (10:18)
[2017-12-01] MEDS: PRENATAL VITAMINS W/ FOLIC ACID TABLET (FP) PO SCH (10:18)
[2017-12-01] MEDS: NICOTINE POLACRILEX 2 MG GUM BC PRN ×2 (10:19→19:51)
[2017-12-01] MEDS: NICOTINE 14 MG/24 HOURS TOPICAL PATCH TD SCH (10:19)
--- NOTE | 2017-12-01 11:08 | PN ---
[facility] Progress Note (SOAP) Subjective: Shakes sweats Sleep disturbance Objective: 12/01/17 11:06 In bed, A & O x 3 Vital Signs Temperature 97.9 F 12/01/17 09:34 Pulse Rate 64 12/01/17 09:34 Respiratory Rate 16 12/01/17 09:34 Blood Pressure 112/69 12/01/17 09:34 O2 Sat by Pulse Oximetry (%) Assessment: 12/01/17 11:08 withdrawal sx Plan: continue detox continue increased hydration
[2017-12-01] MEDS: chlordiazePOXIDE HCL 10 MG CAPSULE PO SCH (22:21)
[2017-12-01] MEDS: THIAMINE HCL 100 MG TABLET (FP) PO SCH (22:21)
[2017-12-01] MEDS: ZOLPIDEM TARTRATE 5 MG TABLET PO PRN (22:21)
[2017-12-02] MEDS: chlordiazePOXIDE HCL 10 MG CAPSULE PO SCH ×3 (05:14→17:23)
[2017-12-02] MEDS ORDERED: METHADONE HCL 10 MG TABLET (FOR DETOX USE ONLY) PO SCH (10:00)
[2017-12-02] MEDS: PRENATAL VITAMINS W/ FOLIC ACID TABLET (FP) PO SCH (10:06)
[2017-12-02] MEDS: NICOTINE 14 MG/24 HOURS TOPICAL PATCH TD SCH (10:06)
[2017-12-02] MEDS: NICOTINE POLACRILEX 2 MG GUM BC PRN (12:31)
--- NOTE | 2017-12-02 13:42 | PN ---
[facility] Progress Note (SOAP) Subjective: Fatigue, Body Aches, Sweating. Objective: PATIENT A & O X 3, OBSERVED AMBULATING ON UNIT. NO ACUTE DISTRESS. 12/02/17 13:41 Vital Signs Temperature 97.7 F 12/02/17 09:07 Pulse Rate 74 12/02/17 09:07 Respiratory Rate 16 12/02/17 09:07 Blood Pressure 132/86 12/02/17 09:07 O2 Sat by Pulse Oximetry (%) Laboratory Tests 11/29/17 11/29/17 11/29/17 07:55 07:55 07:55 WBC 5.3 RBC 4.16 Hgb 13.1 Hct 38.6 MCV 92.8 MCH 31.5 MCHC 33.9 RDW 14.0 Plt Count 198 MPV 8.2 Sodium 138 Potassium 4.5 Chloride 103 Carbon Dioxide 30 Anion Gap 5 L BUN 14 Creatinine 0.8 Creat Clearance w eGFR > 60 Random Glucose 99 Calcium 8.2 L Total Bilirubin 0.2 D AST 36 D ALT 40 D Alkaline Phosphatase 60 Total Protein 6.2 L Albumin 3.2 L Urine Color Urine Appearance Urine pH Ur Specific [place] Urine Protein Urine Glucose (UA) Urine Ketones Urine Blood Urine Nitrite Urine Bilirubin Urine Urobilinogen Ur Leukocyte Esterase RPR Titer HIV 1&2 Antibody Screen Negative HIV P24 Antigen Negative 11/29/17 11/30/17 07:55 06:22 WBC RBC Hgb Hct MCV MCH MCHC RDW Plt Count MPV Sodium Potassium Chloride Carbon Dioxide Anion Gap BUN Creatinine Creat Clearance w eGFR Random Glucose Calcium Total Bilirubin AST ALT Alkaline Phosphatase Total Protein Albumin Urine Color Yellow Urine Appearance Cloudy Urine pH 5.0 Ur Specific [place] 1.019 Urine Protein Negative Urine Glucose (UA) Negative Urine Ketones Negative Urine Blood Negative Urine Nitrite Negative Urine Bilirubin Negative Urine Urobilinogen Negative Ur Leukocyte Esterase Negative RPR Titer Nonreactive HIV 1&2 Antibody Screen HIV P24 Antigen LABS NOTED. Assessment: 12/02/17 13:41 WITHDRAWAL SYMPTOMS. Plan: CONTINUE DETOX. PATIENT SCHEDULED FOR D/C TOMORROW.
[2017-12-02] MEDS: ACETAMINOPHEN 325 MG TABLET (FP) PO PRN (21:56)
[2017-12-02] MEDS: ZOLPIDEM TARTRATE 5 MG TABLET PO PRN (21:56)
[2017-12-02] MEDS: THIAMINE HCL 100 MG TABLET (FP) PO SCH (21:57)
[2017-12-03] MEDS ORDERED: METHADONE HCL 5 MG TABLET (FOR DETOX USE ONLY) PO SCH (06:00)
[2017-12-03 06:51] VITALS: BP 129/83; PULSE 62; TEMP 97.2
[2017-12-03] MEDS: NICOTINE 14 MG/24 HOURS TOPICAL PATCH TD SCH (09:22)
[2017-12-03] MEDS: PRENATAL VITAMINS W/ FOLIC ACID TABLET (FP) PO SCH (09:22)
--- NOTE | 2017-12-03 13:57 | PN ---
[facility] Progress Note (SOAP) Subjective: Patient denies current Detox symptoms and reports that he feels well overall. Objective: PATIENT A & O X 3, OBSERVED AMBULATING ON UNIT. NO ACUTE DISTRESS. 12/03/17 13:52 Vital Signs Temperature 97.2 F L 12/03/17 06:49 Pulse Rate 62 12/03/17 06:49 Respiratory Rate 19 12/03/17 06:49 Blood Pressure 129/83 12/03/17 06:49 O2 Sat by Pulse Oximetry (%) Laboratory Tests 11/29/17 11/29/17 11/29/17 07:55 07:55 07:55 WBC 5.3 RBC 4.16 Hgb 13.1 Hct 38.6 MCV 92.8 MCH 31.5 MCHC 33.9 RDW 14.0 Plt Count 198 MPV 8.2 Sodium 138 Potassium 4.5 Chloride 103 Carbon Dioxide 30 Anion Gap 5 L BUN 14 Creatinine 0.8 Creat Clearance w eGFR > 60 Random Glucose 99 Calcium 8.2 L Total Bilirubin 0.2 D AST 36 D ALT 40 D Alkaline Phosphatase 60 Total Protein 6.2 L Albumin 3.2 L Urine Color Urine Appearance Urine pH Ur Specific [place] Urine Protein Urine Glucose (UA) Urine Ketones Urine Blood Urine Nitrite Urine Bilirubin Urine Urobilinogen Ur Leukocyte Esterase RPR Titer HIV 1&2 Antibody Screen Negative HIV P24 Antigen Negative 11/29/17 11/30/17 07:55 06:22 WBC RBC Hgb Hct MCV MCH MCHC RDW Plt Count MPV Sodium Potassium Chloride Carbon Dioxide Anion Gap BUN Creatinine Creat Clearance w eGFR Random Glucose Calcium Total Bilirubin AST ALT Alkaline Phosphatase Total Protein Albumin Urine Color Yellow Urine Appearance Cloudy Urine pH 5.0 Ur Specific [place] 1.019 Urine Protein Negative Urine Glucose (UA) Negative Urine Ketones Negative Urine Blood Negative Urine Nitrite Negative Urine Bilirubin Negative Urine Urobilinogen Negative Ur Leukocyte Esterase Negative RPR Titer Nonreactive HIV 1&2 Antibody Screen HIV P24 Antigen LABS NOTED. Assessment: 12/03/17 13:52 COMPLETION OF DETOX REGIMEN. Plan: PATIENT SCHEDULED FOR DISCHARGE FROM DETOX UNIT TODAY.
--- NOTE | 2017-12-03 14:04 | DS ---
[facility] Detox Discharge Summary Admission Date: 11/28/17 Discharge Date: 12/03/17 - History Present History: Alcohol Dependence, Opioid Dependence Additional Comments: PATIENT ADVISED TO CONSIDER LOCAL 12-STEP / NA / AA OUTPATIENT SUPPORT GROUP FOR AFTERCARE. PATIENT WAS DISCHARGED FROM DETOX UNIT IN STABLE MEDICAL CONDITION. Pertinent Past History: Nicotine Dependence, Insomnia, History of Positive PPD. - Physical Exam Results Vital Signs: Vital Signs Temperature 97.2 F L 12/03/17 06:49 Pulse Rate 62 12/03/17 06:49 Respiratory Rate 19 12/03/17 06:49 Blood Pressure 129/83 12/03/17 06:49 O2 Sat by Pulse Oximetry (%) Pertinent Admission Physical Exam Findings: WITHDRAWAL SYMPTOMS. Laboratory Tests 11/29/17 11/29/17 11/29/17 07:55 07:55 07:55 WBC 5.3 RBC 4.16 Hgb 13.1 Hct 38.6 MCV 92.8 MCH 31.5 MCHC 33.9 RDW 14.0 Plt Count 198 MPV 8.2 Sodium 138 Potassium 4.5 Chloride 103 Carbon Dioxide 30 Anion Gap 5 L BUN 14 Creatinine 0.8 Creat Clearance w eGFR > 60 Random Glucose 99 Calcium 8.2 L Total Bilirubin 0.2 D AST 36 D ALT 40 D Alkaline Phosphatase 60 Total Protein 6.2 L Albumin 3.2 L Urine Color Urine Appearance Urine pH Ur Specific [place] Urine Protein Urine Glucose (UA) Urine Ketones Urine Blood Urine Nitrite Urine Bilirubin Urine Urobilinogen Ur Leukocyte Esterase RPR Titer HIV 1&2 Antibody Screen Negative HIV P24 Antigen Negative 11/29/17 11/30/17 07:55 06:22 WBC RBC Hgb Hct MCV MCH MCHC RDW Plt Count MPV Sodium Potassium Chloride Carbon Dioxide Anion Gap BUN Creatinine Creat Clearance w eGFR Random Glucose Calcium Total Bilirubin AST ALT Alkaline Phosphatase Total Protein Albumin Urine Color Yellow Urine Appearance Cloudy Urine pH 5.0 Ur Specific [place] 1.019 Urine Protein Negative Urine Glucose (UA) Negative Urine Ketones Negative Urine Blood Negative Urine Nitrite Negative Urine Bilirubin Negative Urine Urobilinogen Negative Ur Leukocyte Esterase Negative RPR Titer Nonreactive HIV 1&2 Antibody Screen HIV P24 Antigen LABS NOTED. - Treatment Hospital Course: Detox Protocol Followed, Detoxed Safely, Responded well, Discharged Condition Good Patient has Accepted a Rehab Referral to: PT. ADVISED TO CONSIDER LOCAL 12-STEP/ NA/AA OUTPATIENT SUPPORT GROUPS. - Medication Discharge Medications: Ambulatory Orders NK [No Known Home Medication] 11/04/17 - Diagnosis (1) Alcohol dependence with uncomplicated withdrawal Status: Acute (2) Nicotine dependence Status: Acute Qualifiers: Nicotine product type: cigarettes Substance use status: in withdrawal Qualified Code(s): F17.213 - Nicotine dependence, cigarettes, with withdrawal (3) Opioid dependence with withdrawal Status: Acute (4) Positive PPD Status: Chronic (5) Insomnia Status: Acute Qualifiers: Insomnia type: unspecified Qualified Code(s): G47.00 - Insomnia, unspecified - AMA Did Patient Leave Against Medical Advice: No
== END 2017-12-03 08:20 | disposition home or self-care (01) | DRG 773 ==
LOC: YASAS 17:23 → Y3N 20:15
PROVIDERS: ADMIT Surgery; ATTEND Surgery
PROC: HZ2ZZZZ Detoxification Services for Substance Abuse Treatment (ICD-10-PCS; principal; 2017-11-28)
DX: F11.23 Opioid dependence with withdrawal (principal); F10.230 Alcohol dependence with withdrawal, uncomplicated; F17.213 Nicotine dependence, cigarettes, with withdrawal; R76.11 Nonspecific reaction to tuberculin skin test without active tuberculosis; G47.00 Insomnia, unspecified; R00.0 Tachycardia, unspecified; R26.2 Difficulty in walking, not elsewhere classified; Z99.89 Dependence on other enabling machines and devices
CPT/HCPCS: 36415; 71046-TC-FY; 80053; 81003; 85027; 86593; 87389; 93005; 93010

== ENCOUNTER 2019-06-07 09:06 | Inpatient (IN) | payer OTHER ==
[2019-06-07 09:45] VITALS: BMI 35.9
--- NOTE | 2019-06-07 10:09 | HP ---
COWS - Scale Resting Pulse: 1= [place] 81-100 Sweatin= Beads of Sweat on Face Restless Observation: 1= Difficult to Sit Still Pupil Size: 1= Pupils >than Normal Bone or Joint Aches: 1= Mild Discomfort Runny Nose/ Eye Tearin= Runny Nose/Eyes GI Upset > 30mins: 2= Nausea/Diarrhea Tremor Observation: 1= Tremor [place], Not Seen Yawning Observation: 1= 1-2x During Session Anxiety or Irritability: 1=Feels Anxious/Irritable Goose Flesh Skin: 3=Piloerection COWS Score: 17 CIWA Score Nausea/Vomitin Muscle Tremors: 3 Anxiety: 3 Agitation: 3 Paroxysmal Sweats: 4-Forehead w/Sweat Beads Orientation: 0-Oriented Tacttile Disturbances: 0-None Auditory Disturbances: 0-None Visual Disturbances: 0-None Headache: 2-Mild CIWA-Ar Total Score: 18 - Admission Criteria OASAS Guidelines: Admission for Medically Managed Detox: Requires at least one of the followin. CIWA greater than 12 2. Seizures within the past 24 hours 3. Delirium tremens within the past 24 hours 4. Hallucinations within the past 24 hours 5. Acute intervention needed for co occurring medical disorder 6. Acute intervention needed for co occurring psychiatric disorder 7. Severe withdrawal that cannot be handled at a lower level of care (continued vomiting, continued diarrhea, abnormal vital signs) requiring intravenous medication and/or fluids 8. Admitting History and Physical - Admission Chief Complaint: " I want to get my life together and stopped the heroin and alcohol." History of Present Illness: 48 years old male with a long history of heroin and alcohol dependence is seeking admission to detox. Patient was in detox 02/11/2018-02/18/2018 and reports 1 year abstinence and then relapsed. He has medical history of PPD positive, treated with INH and B/6 for 9 months while incarcerated 1991. Patient denies and SI or plans. He is drinking 3-6 beer cans daily, last drank on friday, was given Librium last night at [facility]. He is using Heroin 6-12 bags daily, last used Friday06/06/19, intranasally, used to use intravenously stopped 2014. He has had overdosed once in 2011, none recently. He does have narcan but does not carry it. He is smoking 10 ciggarettes daily. PMH: Arthritis Psurg: Psych: History Source: Patient Limitations to Obtaining History: No Limitations - Past Surgical History Past Surgical History: Yes: None - Smoking History Smoking history: Current every day smoker Have you smoked in the past 12 months: Yes Aproximately how many cigarettes per day: 20 - Alcohol/Substance Use Hx Alcohol Use: Yes History of Substance Use: reports: Cocaine, Heroin Date of Last Use: 06/06/19 - Social History Usual Living Arrangement: Yes: Alone Do you think of yourself as: Straight/Heterosexual ADL: Independent Occupation: unemployed History of Recent Travel: No Admission [facility] Allergies/Adverse Reactions: Allergies Allergy/AdvReac Type Severity Reaction Status Date / Time No Known Allergies Allergy Verified 06/07/19 09:39 Exam Limitations: No Limitations - Ebola screening Have you traveled outside of the country in the last 21 days: No Have you had contact with anyone from an Ebola affected area: No Have you been sick,other than usual withdrawal symptoms: No Do you have a fever: No - Review of Systems Constitutional: Chills, Diaphoresis, Night Sweats Patient History - Patient Medical History Hx Anemia: No Hx Asthma: No Hx Chronic Obstructive Pulmonary Disease (COPD): No Hx Cancer: No Hx Cardiac Disorders: No Hx Congestive Heart Failure: No Hx Hypertension: No Hx Hypercholesterolemia: No Hx Pacemaker: No HX Cerebrovascular Accident: No Hx Seizures: No Hx Dementia: No Hx Diabetes: No Hx Gastrointestinal Disorders: No Hx Liver Disease: No Hx Genitourinary Disorders: No Hx Sexually Transmitted Disorders: No Hx Renal Disease (ESRD): No Hx Thyroid Disease: No Hx Human Immunodeficiency Virus (HIV): No (Negative August 2017) Hx Hepatitis C: No Hx Depression: Yes (Not on medication) Hx Suicide Attempt: No (Denies suicide attempt and suicidal ideation at this time) Hx Bipolar Disorder: No Hx Schizophrenia: No - Patient Surgical History Past Surgical History: No Hx Neurologic Surgery: No Hx Cataract Extraction: No Hx Cardiac Surgery: No Hx Lung Surgery: No Hx Breast Surgery: No Hx Breast Biopsy: No Hx Abdominal Surgery: No Hx Appendectomy: No Hx Cholecystectomy: No Hx Genitourinary Surgery: No Hx Section: No Hx Orthopedic Surgery: No Anesthesia Reaction: No - PPD History Documented Results: Positive w/o proof Implanted On Prior R Admission?: No Date: 12/16/19 PPD to be Administered?: No - Smoking Cessation Smoking history: Current every day smoker Have you smoked in the past 12 months: Yes Aproximately how many cigarettes per day: 20 Hx Chewing Tobacco Use: No Initiated information on smoking cessation: Yes 'Breaking Loose' booklet given: 06/07/19 - Substances abused Alcohol Substance route: Oral Frequency: Daily Amount used: 3-6 cans of beers Age of first use: 13 Date of last use: 06/04/19 Heroin Substance route: Inhalation Frequency: Daily Amount used: 6-12 bags Age of first use: 30 Date of last use: 06/06/19 Admission Physical Exam S - Vital Signs Vital Signs: Vital Signs - 24 hr 06/07/19 06/07/19 09:40 09:50 Temperature 97.1 F L 97.1 F L Pulse Rate 84 84 Respiratory 20 20 Rate Blood Pressure 132/74 132/74 - Physical General Appearance: Yes: Mild Distress, Tremorous, Irritable, Sweating, Anxious HEENTM: Yes: EOMI, Hearing grossly Normal, Normal ENT Inspection, Normocephalic , Normal Voice, SIMON, Pharynx Normal, Tm's normal Respiratory: Yes: Chest Non-Tender, Lungs Clear, No Respiratory Distress, No Accessory Muscle Use, Crackles Neck: Yes: No masses,lesions,Nodules, Supple, Trachea in good position Breast: Yes: Axillae without masses Cardiology: Yes: Regular Rhythm, Regular Rate, S1, S2 Abdominal: Yes: Non Tender, Soft, Increased Bowel Sounds, Protuberent Genitourinary: Yes: Within Normal Limits Back: Yes: Normal Inspection Musculoskeletal: Yes: full range of Motion, Gait Steady, Pelvis Stable Extremities: Yes: Normal Capillary Refill, Normal Inspection, Normal Range of Motion, Non-Tender 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: 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 NML intact, Fully Oriented, Alert, Motor Strength 5/5, Normal Mood/Affect, Normal Response Integumentary: Yes: Normal Color, Warm Lymphatic: Yes: Within Normal Limits - Diagnostic (1) Alcohol dependence with uncomplicated withdrawal Current Visit: Yes Status: Acute (2) Nicotine dependence Current Visit: Yes Status: Acute Qualifiers: Nicotine product type: cigarettes Substance use status: in withdrawal Qualified Code(s): F17.213 - Nicotine dependence, cigarettes, with withdrawal (3) Opioid dependence with withdrawal Current Visit: Yes Status: Acute (4) Cocaine dependence Current Visit: No Status: Chronic Qualifiers: Substance use status: uncomplicated Qualified Code(s): F14.20 - Cocaine dependence, uncomplicated (5) Positive PPD Current Visit: Yes Status: Chronic Cleared for Admission [facility] - Detox or Rehab [facility] Level of Care: Medically Managed Detox Regimen/Protocol: Methadone/Librium Claeared for Rehab Admission: No Screened but not Admitted - Documentation of Visit Screened but not Admitted: No Breathalyzer - Breathalyzer Breathalyzer: 0 Urine Drug Screen - Test Device Lot number: [id number] Expiration date: 01/20/21 - Control Is test valid?: Yes - Results Urine drug screen results: AJ-Cocaine, MET-Methamphetamine, AMP-Amphetamines, FEN-Fentanyl, MOP-Opiates, MTD-Methadone, BZO-Benzodiazepines Inpatient Rehab Admission - Rehab Decision to Admit Inpatient rehab admission?: No
[2019-06-07] MEDS ORDERED: MAGNESIUM HYDROX 2400MG/30ML ORAL SUSPENSION 30 ML CUP PO PRN (10:16)
[2019-06-07] MEDS ORDERED: BISMUTH SUBSALICYLATE 262 MG/15 ML BTL PO PRN (10:16)
[2019-06-07] MEDS ORDERED: hydrOXYzine PAMOATE 25 MG CAPSULE (FP) PO PRN (10:16)
[2019-06-07] MEDS ORDERED: IBUPROFEN 400 MG TABLET (FP) PO PRN (10:16)
[2019-06-07] MEDS ORDERED: ACETAMINOPHEN 325 MG TABLET (FP) PO PRN (10:16)
[2019-06-07] MEDS ORDERED: cloNIDine HCL 0.1 MG TABLET PO PRN (10:16)
[2019-06-07] MEDS ORDERED: MAGNESIUM CITRATE 300 ML BOTTLE PO PRN (10:16)
[2019-06-07] MEDS ORDERED: chlordiazePOXIDE HCL 25 MG CAPSULE PO PRN (10:16)
[2019-06-07] MEDS ORDERED: MENTHOL/PHENOL 1 EACH UD MM PRN (10:16)
[2019-06-07] MEDS ORDERED: MAG HYDROX/AL HYDROX/SIMETH 30 ML UNIT-DOSE CUP PO PRN (10:16)
[2019-06-07] MEDS ORDERED: AZITHROMYCIN 250 MG TABLET PO SCH (10:30)
[2019-06-07] MEDS ORDERED: METHADONE HCL 10 MG TABLET (FOR DETOX USE ONLY) PO ONE (11:45)
[2019-06-07] MEDS: chlordiazePOXIDE HCL 25 MG CAPSULE PO SCH ×3 (12:03→22:15)
[2019-06-07] MEDS ORDERED: AZITHROMYCIN 250 MG TABLET PO ONE (12:21)
[2019-06-07 12:35] LABS: HEMATOCRIT 40.5 % (35.4-49); HEMOGLOBIN 13.6 GM/dL (11.7-16.9); MCH 30.9 pg (25.7-33.7); MCHC 33.7 g/dl (32.0-35.9); MEAN CELL VOLUME 91.7 fl (80-96); MEAN PLT VOLUME 8.1 fl (7.5-11.1); PLATELET COUNT 220 K/MM3 (134-434); RBC 4.42 M/mm3 (4.00-5.60); RDW 14.8 % (11.9-15.9); WHITE BLOOD COUNT 6.6 K/mm3 (4.0-10.0)
[2019-06-07 12:47] LABS: ALBUMIN 4.1 g/dl (3.4-5.0); BILIRUBIN,TOTAL 0.4 mg/dL (0.2-1); BLOOD UREA NITROGEN 24.8 mg/dL (7-18); CALCIUM 8.4 mg/dL (8.5-10.1); CREATININE 1.8 mg/dL (0.55-1.3); POTASSIUM 4.2 mmol/L (3.5-5.1); TOT PROT 7.4 g/dl (6.4-8.2)
--- NOTE | 2019-06-07 14:40 | PN ---
[facility] Progress Note Note: patient requests nicotine gum order nicotine gum prn
[2019-06-07] MEDS: NICOTINE POLACRILEX 2 MG GUM BUC PRN (19:03)
[2019-06-07] MEDS: THIAMINE HCL 100 MG TABLET (FP) PO SCH (21:47)
[2019-06-07] MEDS: MELATONIN 5 MG TABLETS PO PRN (21:47)
[2019-06-08] MEDS: chlordiazePOXIDE HCL 25 MG CAPSULE PO SCH ×4 (06:26→22:07)
[2019-06-08] MEDS ORDERED: METHADONE (DETOX) 20 MG, METHADONE (DETOX) 5 MG PO ONE (10:00)
[2019-06-08] MEDS ORDERED: METHADONE HCL 5 MG TABLET (FOR DETOX USE ONLY) ONE (10:08)
[2019-06-08] MEDS ORDERED: METHADONE HCL 10 MG TABLET (FOR DETOX USE ONLY) ONE (10:08)
--- NOTE | 2019-06-08 10:19 | PN ---
S CIWA - CIWA Score Nausea/Vomitin-Mild Nausea/No Vomiting Muscle Tremors: 3 Anxiety: 4-Mod. Anxious/Guarded Agitation: 2 Paroxysmal Sweats: 2 Orientation: 0-Oriented Tacttile Disturbances: 1-Very Mild Itch/Numbness Auditory Disturbances: 1-Very Mild Visual Disturbances: 0-None Headache: 2-Mild CIWA-Ar Total Score: 16 BHS Progress Note (SOAP) Subjective: 48 years old male admitted on 06/07/19 for alcohol and opiate withdrawal sx management treating with librium and methadone detox regimen resting on bed feeling tired limited conversation with staff prefers to stay in bed today Objective: 06/08/19 10:25 Vital Signs Temperature 98.2 F 06/08/19 09:21 Pulse Rate 69 06/08/19 09:21 Respiratory Rate 18 06/08/19 09:21 Blood Pressure 114/75 06/08/19 09:21 O2 Sat by Pulse Oximetry (%) Laboratory Last Values WBC 6.6 K/mm3 (4.0-10.0) 06/07/19 10:10 RBC 4.42 M/mm3 (4.00-5.60) 06/07/19 10:10 Hgb 13.6 GM/dL (11.7-16.9) 06/07/19 10:10 Hct 40.5 % (35.4-49) 06/07/19 10:10 MCV 91.7 fl (80-96) 06/07/19 10:10 MCH 30.9 pg (25.7-33.7) 06/07/19 10:10 MCHC 33.7 g/dl (32.0-35.9) 06/07/19 10:10 RDW 14.8 % (11.9-15.9) 06/07/19 10:10 Plt Count 220 K/MM3 (134-434) 06/07/19 10:10 MPV 8.1 fl (7.5-11.1) 06/07/19 10:10 Sodium 135 mmol/L (136-145) L 06/07/19 10:10 Potassium 4.2 mmol/L (3.5-5.1) 06/07/19 10:10 Chloride 98 mmol/L (98-107) 06/07/19 10:10 Carbon Dioxide 29 mmol/L (21-32) 06/07/19 10:10 Anion Gap 7 MMOL/L (8-16) L 06/07/19 10:10 BUN 24.8 mg/dL (7-18) H 06/07/19 10:10 Creatinine 1.8 mg/dL (0.55-1.3) H 06/07/19 10:10 Est GFR (CKD-EPI)AfAm 50.46 06/07/19 10:10 Est GFR (CKD-EPI)NonAf 43.54 06/07/19 10:10 Random Glucose 82 mg/dL (74-106) 06/07/19 10:10 Calcium 8.4 mg/dL (8.5-10.1) L 06/07/19 10:10 Total Bilirubin 0.4 mg/dL (0.2-1) 06/07/19 10:10 AST 20 U/L (15-37) 06/07/19 10:10 ALT 32 U/L (13-61) 06/07/19 10:10 Alkaline Phosphatase 82 U/L (45-117) 06/07/19 10:10 Total Protein 7.4 g/dl (6.4-8.2) 06/07/19 10:10 Albumin 4.1 g/dl (3.4-5.0) 06/07/19 10:10 RPR Titer Nonreactive (NONREACTIVE) 06/07/19 10:10 lab noted Assessment: 06/08/19 10:26 alcohol and opiate withdrawal Plan: librium and methadone regimen
[2019-06-08] MEDS: PRENATAL VITAMINS W/ FOLIC ACID TABLET (FP) PO SCH (10:29)
[2019-06-08] MEDS: AZITHROMYCIN 250 MG TABLET PO SCH (10:30)
[2019-06-08] MEDS: NICOTINE 14 MG/24 HOURS TOPICAL PATCH TD SCH (10:30)
[2019-06-08] MEDS: NICOTINE POLACRILEX 2 MG GUM BUC PRN ×2 (10:30→17:52)
[2019-06-08] MEDS: THIAMINE HCL 100 MG TABLET (FP) PO SCH (22:07)
[2019-06-08] MEDS: MELATONIN 5 MG TABLETS PO PRN (22:07)
[2019-06-09] MEDS: chlordiazePOXIDE HCL 25 MG CAPSULE PO SCH ×4 (06:24→22:08)
[2019-06-09] MEDS ORDERED: METHADONE HCL 10 MG TABLET (FOR DETOX USE ONLY) PO ONE (10:00)
[2019-06-09] MEDS: PRENATAL VITAMINS W/ FOLIC ACID TABLET (FP) PO SCH (10:19)
[2019-06-09] MEDS: AZITHROMYCIN 250 MG TABLET PO SCH (10:19)
[2019-06-09] MEDS: NICOTINE 14 MG/24 HOURS TOPICAL PATCH TD SCH (10:20)
--- NOTE | 2019-06-09 11:10 | PN ---
S CIWA - CIWA Score Nausea/Vomitin-Mild Nausea/No Vomiting Muscle Tremors: 3 Anxiety: 3 Agitation: 1-Slight > Activity Paroxysmal Sweats: 2 Orientation: 0-Oriented Tacttile Disturbances: 0-None Auditory Disturbances: 0-None Visual Disturbances: 0-None Headache: 2-Mild CIWA-Ar Total Score: 12 BHS COWS - Scale Resting Pulse: 0= [place] 80 or Below Sweatin= Chills/Flushing Restless Observation: 0= Sits Still Pupil Size: 1= Pupils >than Normal Bone or Joint Aches: 1= Mild Discomfort Runny Nose/ Eye Tearin= Nasal Congestion GI Upset > 30mins: 1= Stomach Cramp Tremor Observation of Outstretched Hands: 2= Slight Tremor Visible Yawning Observation: 0= None Anxiety or Irritability: 2=Irritable/Anxious Goose Flesh Skin: 3=Piloerection COWS Score: 12 S Progress Note (SOAP) Subjective: 48 years old male admitted on 06/07/19 for alcohol and opiate withdrawal sx management treating with librium and methadone detox regimen ate breakfast resting on bed comfortably patient determines to maintain sober enforce medication assisted treatment program and strip picker narcan from pharmacy Objective: 06/09/19 11:11 Vital Signs Temperature 97.3 F L 06/09/19 09:22 Pulse Rate 65 06/09/19 09:22 Respiratory Rate 18 06/09/19 09:22 Blood Pressure 136/80 06/09/19 09:22 O2 Sat by Pulse Oximetry (%) Laboratory Last Values WBC 6.6 K/mm3 (4.0-10.0) 06/07/19 10:10 RBC 4.42 M/mm3 (4.00-5.60) 06/07/19 10:10 Hgb 13.6 GM/dL (11.7-16.9) 06/07/19 10:10 Hct 40.5 % (35.4-49) 06/07/19 10:10 MCV 91.7 fl (80-96) 06/07/19 10:10 MCH 30.9 pg (25.7-33.7) 06/07/19 10:10 MCHC 33.7 g/dl (32.0-35.9) 06/07/19 10:10 RDW 14.8 % (11.9-15.9) 06/07/19 10:10 Plt Count 220 K/MM3 (134-434) 06/07/19 10:10 MPV 8.1 fl (7.5-11.1) 06/07/19 10:10 Sodium 135 mmol/L (136-145) L 06/07/19 10:10 Potassium 4.2 mmol/L (3.5-5.1) 06/07/19 10:10 Chloride 98 mmol/L (98-107) 06/07/19 10:10 Carbon Dioxide 29 mmol/L (21-32) 06/07/19 10:10 Anion Gap 7 MMOL/L (8-16) L 06/07/19 10:10 BUN 24.8 mg/dL (7-18) H 06/07/19 10:10 Creatinine 1.8 mg/dL (0.55-1.3) H 06/07/19 10:10 Est GFR (CKD-EPI)AfAm 50.46 06/07/19 10:10 Est GFR (CKD-EPI)NonAf 43.54 06/07/19 10:10 Random Glucose 82 mg/dL (74-106) 06/07/19 10:10 Calcium 8.4 mg/dL (8.5-10.1) L 06/07/19 10:10 Total Bilirubin 0.4 mg/dL (0.2-1) 06/07/19 10:10 AST 20 U/L (15-37) 06/07/19 10:10 ALT 32 U/L (13-61) 06/07/19 10:10 Alkaline Phosphatase 82 U/L (45-117) 06/07/19 10:10 Total Protein 7.4 g/dl (6.4-8.2) 06/07/19 10:10 Albumin 4.1 g/dl (3.4-5.0) 06/07/19 10:10 RPR Titer Nonreactive (NONREACTIVE) 06/07/19 10:10 lab noted Assessment: 06/09/19 11:11 alcohol and opiate withdrawal Plan: librium and methadone regimen
[2019-06-09] MEDS: ACETAMINOPHEN 325 MG TABLET (FP) PO PRN (12:16)
[2019-06-09] MEDS: NICOTINE POLACRILEX 2 MG GUM BUC PRN ×2 (13:04→15:46)
[2019-06-09] MEDS: THIAMINE HCL 100 MG TABLET (FP) PO SCH (22:07)
[2019-06-09] MEDS: MELATONIN 5 MG TABLETS PO PRN (22:08)
[2019-06-10] MEDS ORDERED: chlordiazePOXIDE HCL 10 MG CAPSULE PO PRN
[2019-06-10] MEDS: chlordiazePOXIDE HCL 10 MG CAPSULE PO SCH ×4 (06:21→22:09)
[2019-06-10] MEDS ORDERED: METHADONE (DETOX) 10 MG, METHADONE (DETOX) 5 MG PO ONE (10:00)
--- NOTE | 2019-06-10 10:21 | PN ---
[facility] CIWA - CIWA Score Nausea/Vomitin-No Nausea/No Vomiting Muscle Tremors: 3 Anxiety: 2 Agitation: 1-Slight > Activity Paroxysmal Sweats: 2 Orientation: 0-Oriented Tacttile Disturbances: 0-None Auditory Disturbances: 0-None Visual Disturbances: 0-None Headache: 1-Very Mild CIWA-Ar Total Score: 9 S Progress Note (SOAP) Subjective: 48 years old male admitted on 06/07/19 for alcohol and opiate withdrawal sx management treating with librium and methadone detox regimen health teaching on the benefits of medication assisted treatment program and encourage picking up narcan from pharmacy Objective: 06/10/19 10:22 Vital Signs Temperature 97.2 F L 06/10/19 09:11 Pulse Rate 60 06/10/19 09:11 Respiratory Rate 20 06/10/19 09:11 Blood Pressure 130/86 06/10/19 09:11 O2 Sat by Pulse Oximetry (%) Laboratory Last Values WBC 6.6 K/mm3 (4.0-10.0) 06/07/19 10:10 RBC 4.42 M/mm3 (4.00-5.60) 06/07/19 10:10 Hgb 13.6 GM/dL (11.7-16.9) 06/07/19 10:10 Hct 40.5 % (35.4-49) 06/07/19 10:10 MCV 91.7 fl (80-96) 06/07/19 10:10 MCH 30.9 pg (25.7-33.7) 06/07/19 10:10 MCHC 33.7 g/dl (32.0-35.9) 06/07/19 10:10 RDW 14.8 % (11.9-15.9) 06/07/19 10:10 Plt Count 220 K/MM3 (134-434) 06/07/19 10:10 MPV 8.1 fl (7.5-11.1) 06/07/19 10:10 Sodium 135 mmol/L (136-145) L 06/07/19 10:10 Potassium 4.2 mmol/L (3.5-5.1) 06/07/19 10:10 Chloride 98 mmol/L (98-107) 06/07/19 10:10 Carbon Dioxide 29 mmol/L (21-32) 06/07/19 10:10 Anion Gap 7 MMOL/L (8-16) L 06/07/19 10:10 BUN 24.8 mg/dL (7-18) H 06/07/19 10:10 Creatinine 1.8 mg/dL (0.55-1.3) H 06/07/19 10:10 Est GFR (CKD-EPI)AfAm 50.46 06/07/19 10:10 Est GFR (CKD-EPI)NonAf 43.54 06/07/19 10:10 Random Glucose 82 mg/dL (74-106) 06/07/19 10:10 Calcium 8.4 mg/dL (8.5-10.1) L 06/07/19 10:10 Total Bilirubin 0.4 mg/dL (0.2-1) 06/07/19 10:10 AST 20 U/L (15-37) 06/07/19 10:10 ALT 32 U/L (13-61) 06/07/19 10:10 Alkaline Phosphatase 82 U/L (45-117) 06/07/19 10:10 Total Protein 7.4 g/dl (6.4-8.2) 06/07/19 10:10 Albumin 4.1 g/dl (3.4-5.0) 06/07/19 10:10 RPR Titer Nonreactive (NONREACTIVE) 06/07/19 10:10 lab noted Assessment: 06/10/19 10:22 alcohol and opiate withdrawal Plan: librium and methadone regimens
[2019-06-10] MEDS: NICOTINE 14 MG/24 HOURS TOPICAL PATCH TD SCH (10:35)
[2019-06-10] MEDS: NICOTINE POLACRILEX 2 MG GUM BUC PRN (10:36)
[2019-06-10] MEDS ORDERED: METHADONE HCL 10 MG TABLET (FOR DETOX USE ONLY) ONE (10:38)
[2019-06-10] MEDS ORDERED: METHADONE HCL 5 MG TABLET (FOR DETOX USE ONLY) ONE (10:39)
[2019-06-10] MEDS: PRENATAL VITAMINS W/ FOLIC ACID TABLET (FP) PO SCH (10:39)
[2019-06-10] MEDS: AZITHROMYCIN 250 MG TABLET PO SCH (10:40)
[2019-06-10] MEDS: METHOCARBAMOL 500 MG TABLET PO PRN ×2 (15:04→22:48)
[2019-06-10] MEDS: ACETAMINOPHEN 325 MG TABLET (FP) PO PRN (20:31)
[2019-06-10] MEDS: THIAMINE HCL 100 MG TABLET (FP) PO SCH (22:09)
[2019-06-10] MEDS: MELATONIN 5 MG TABLETS PO PRN (22:10)
[2019-06-11] MEDS: chlordiazePOXIDE HCL 10 MG CAPSULE PO SCH ×2 (05:41→17:13)
[2019-06-11] MEDS ORDERED: METHADONE HCL 10 MG TABLET (FOR DETOX USE ONLY) PO ONE (10:00)
[2019-06-11] MEDS: PRENATAL VITAMINS W/ FOLIC ACID TABLET (FP) PO SCH (10:03)
[2019-06-11] MEDS: NICOTINE 14 MG/24 HOURS TOPICAL PATCH TD SCH (10:04)
--- NOTE | 2019-06-11 12:35 | PN ---
S CIWA - CIWA Score Nausea/Vomitin-Mild Nausea/No Vomiting Muscle Tremors: 2 Anxiety: 1-Mildly Anxious Agitation: 1-Slight > Activity Paroxysmal Sweats: 1-Minimal Palms Moist Orientation: 0-Oriented Tacttile Disturbances: 0-None Auditory Disturbances: 0-None Visual Disturbances: 0-None Headache: 1-Very Mild CIWA-Ar Total Score: 7 S COWS - Scale Resting Pulse: 1= [place] 81-100 Sweatin= Chills/Flushing Restless Observation: 1= Difficult to Sit Still Pupil Size: 1= Pupils >than Normal Bone or Joint Aches: 1= Mild Discomfort Runny Nose/ Eye Tearin= Nasal Congestion GI Upset > 30mins: 0= None Tremor Observation of Outstretched Hands: 0= None Yawning Observation: 0= None Anxiety or Irritability: 1=Feels Anxious/Irritable Goose Flesh Skin: 0=Smooth Skin COWS Score: 7 S Progress Note (SOAP) Subjective: Pt set to leave tomorrow. Wants to go to rehab here. O: Vital Signs - 24 hr 06/10/19 06/10/19 06/10/19 13:17 18:00 23:38 Temperature 96.9 F L 97.5 F L 97.1 F L Pulse Rate 60 103 H 74 Respiratory 20 18 18 Rate Blood Pressure 128/88 154/88 125/81 06/11/19 06/11/19 06/11/19 00:30 03:30 06:36 Temperature 97.4 F L Pulse Rate 62 Respiratory 18 18 18 Rate Blood Pressure 111/75 06/11/19 09:51 Temperature 97.9 F Pulse Rate 64 Respiratory 18 Rate Blood Pressure 122/77 Laboratory Tests 06/07/19 06/07/19 06/07/19 10:10 10:10 10:10 WBC 6.6 RBC 4.42 Hgb 13.6 Hct 40.5 MCV 91.7 MCH 30.9 MCHC 33.7 RDW 14.8 Plt Count 220 MPV 8.1 Sodium 135 L Potassium 4.2 Chloride 98 Carbon Dioxide 29 Anion Gap 7 L BUN 24.8 H Creatinine 1.8 H Est GFR (CKD-EPI)AfAm 50.46 Est GFR (CKD-EPI)NonAf 43.54 Random Glucose 82 Calcium 8.4 L Total Bilirubin 0.4 AST 20 ALT 32 Alkaline Phosphatase 82 Total Protein 7.4 Albumin 4.1 RPR Titer Nonreactive a/p: alcohol/heroin detox: continue detox protocols, to rehab tomorrow
[2019-06-11] MEDS: NICOTINE POLACRILEX 2 MG GUM BUC PRN ×2 (12:36→15:34)
[2019-06-11] MEDS: ACETAMINOPHEN 325 MG TABLET (FP) PO PRN (17:13)
[2019-06-11] MEDS: THIAMINE HCL 100 MG TABLET (FP) PO SCH (22:17)
[2019-06-11] MEDS: METHOCARBAMOL 500 MG TABLET PO PRN (22:17)
[2019-06-11] MEDS: MELATONIN 5 MG TABLETS PO PRN (22:17)
[2019-06-12] MEDS ORDERED: chlordiazePOXIDE HCL 10 MG CAPSULE PO ONE (05:00)
[2019-06-12] MEDS ORDERED: METHADONE HCL 5 MG TABLET (FOR DETOX USE ONLY) PO ONE (06:00)
[2019-06-12 09:21] VITALS: BP 125/88; PULSE 77; TEMP 96.7
--- NOTE | 2019-06-12 13:04 | DS ---
[facility] Detox Discharge Summary Admission Date: 06/07/19 Discharge Date: 06/12/19 - History Present History: Alcohol Dependence, Opioid Dependence Additional Comments: Pt is medically cleared and is discharged today. Pt completed the detox protocol. Pt is encouraged to follow-up with an outpatient CD program and also to follow-up with his pmd. Pt verbalized understanding. Pt is alert and oriented x3 and in no acute respiratory distress. Pertinent Past History: h/o alcohol and heroin use disorder. - Physical Exam Results Vital Signs: Vital Signs Temperature 96.7 F L 06/12/19 09:20 Pulse Rate 77 06/12/19 09:20 Respiratory Rate 18 06/12/19 09:20 Blood Pressure 125/88 06/12/19 09:20 O2 Sat by Pulse Oximetry (%) Vital Signs 06/12/19 06/12/19 06:17 09:20 Temperature 97.3 F L 96.7 F L Pulse Rate 58 L 77 Respiratory 20 18 Rate Blood Pressure 106/62 125/88 Laboratory Last Values WBC 6.6 K/mm3 (4.0-10.0) 06/07/19 10:10 RBC 4.42 M/mm3 (4.00-5.60) 06/07/19 10:10 Hgb 13.6 GM/dL (11.7-16.9) 06/07/19 10:10 Hct 40.5 % (35.4-49) 06/07/19 10:10 MCV 91.7 fl (80-96) 06/07/19 10:10 MCH 30.9 pg (25.7-33.7) 06/07/19 10:10 MCHC 33.7 g/dl (32.0-35.9) 06/07/19 10:10 RDW 14.8 % (11.9-15.9) 06/07/19 10:10 Plt Count 220 K/MM3 (134-434) 06/07/19 10:10 MPV 8.1 fl (7.5-11.1) 06/07/19 10:10 Sodium 135 mmol/L (136-145) L 06/07/19 10:10 Potassium 4.2 mmol/L (3.5-5.1) 06/07/19 10:10 Chloride 98 mmol/L (98-107) 06/07/19 10:10 Carbon Dioxide 29 mmol/L (21-32) 06/07/19 10:10 Anion Gap 7 MMOL/L (8-16) L 06/07/19 10:10 BUN 24.8 mg/dL (7-18) H 06/07/19 10:10 Creatinine 1.8 mg/dL (0.55-1.3) H 06/07/19 10:10 Est GFR (CKD-EPI)AfAm 50.46 06/07/19 10:10 Est GFR (CKD-EPI)NonAf 43.54 06/07/19 10:10 Random Glucose 82 mg/dL (74-106) 06/07/19 10:10 Calcium 8.4 mg/dL (8.5-10.1) L 06/07/19 10:10 Total Bilirubin 0.4 mg/dL (0.2-1) 06/07/19 10:10 AST 20 U/L (15-37) 06/07/19 10:10 ALT 32 U/L (13-61) 06/07/19 10:10 Alkaline Phosphatase 82 U/L (45-117) 06/07/19 10:10 Total Protein 7.4 g/dl (6.4-8.2) 06/07/19 10:10 Albumin 4.1 g/dl (3.4-5.0) 06/07/19 10:10 RPR Titer Nonreactive (NONREACTIVE) 06/07/19 10:10 Labs noted. Pertinent Admission Physical Exam Findings: withdrawal symptoms. - Treatment Hospital Course: Detox Protocol Followed, Detoxed Safely, Responded well, Discharged Condition Good - Medication Discharge Medications: Ambulatory Orders Azithromycin 250 mg PO ASDIR 06/07/19 Naloxone HCl [Narcan] 4 mg NS ASDIR PRN #1 spray 06/08/19 - Diagnosis (1) Alcohol dependence with uncomplicated withdrawal Status: Acute (2) Nicotine dependence Status: Acute Qualifiers: Nicotine product type: cigarettes Substance use status: in withdrawal Qualified Code(s): F17.213 - Nicotine dependence, cigarettes, with withdrawal (3) Opioid dependence with withdrawal Status: Acute (4) Sprain and strain of ankle Status: Acute (5) Cocaine dependence Status: Chronic Qualifiers: Substance use status: uncomplicated Qualified Code(s): F14.20 - Cocaine dependence, uncomplicated (6) Positive PPD Status: Chronic - AMA Did Patient Leave Against Medical Advice: No
== END 2019-06-12 09:40 | disposition home or self-care (01) | DRG 772 ==
LOC: YASAS 09:06 → Y3N 10:38
PROVIDERS: ADMIT Allergy & Immunology; ATTEND Allergy & Immunology
PROC: HZ42ZZZ Group Counseling for Substance Abuse Treatment, Cognitive-Behavioral (ICD-10-PCS; principal; 2019-06-07)
DX: F11.23 Opioid dependence with withdrawal (principal); F10.230 Alcohol dependence with withdrawal, uncomplicated; F14.20 Cocaine dependence, uncomplicated; F17.213 Nicotine dependence, cigarettes, with withdrawal; R76.11 Nonspecific reaction to tuberculin skin test without active tuberculosis
CPT/HCPCS: 36415; 71046-TC-FY; 80053; 85027; 86593